=== PATIENT | male | born 1935 | race Caucasian/White ===

== ENCOUNTER → 2016-08-14 | Day surgery (SDC) | payer MEDICARE, BC ==
[~2016-08-14] MED LIST: ASPIRIN; ASPIRIN81 M2 PO; AVANDIA; CELEBREX; CIPRO250 MG PO; CLOPIDOGREL75 MG PO; DILTIAZEM 24HR180 M1 PO; FLOMAX0.4 M1 DOB; GLIPIZIDE5 MG/BOTT1 PO; IMDUR-ER60 M1 DOB; ISORDIL; LIPITOR PO; LIPITOR40 MG PO; LISINOPRIL PO; METFORMIN HCL1000 M2; METFORMIN HCL500 M1 PO; SULAR PO; SULAR20 MG PO; TRAVATAN5 ML OU; TYLOX 5-500 CA1 EACH PO; WELLBUTRIN XL; ZESTRIL40 MG PO
--- NOTE | ~2016-08-14 | OR ---
Unit #: [id number] #: [id number] Patient: ALLY WILLIAM [id number] [facility]. [place], [place] [address] [id number] MR#: [id number] NAME: ALLY WILLIAM ROOM: Date of Procedure: 08/14/2016 Admission Date: 08/14/2016 Surgeon: Mykel Chase M.D. : 1935 Attending Physician: Mykel Chase M.D. Primary Care Physician: Taco Saeed M.D. OPERATIVE REPORT PROCEDURES PERFORMED Left ureteroscopy, laser lithotripsy, basket extraction, and stent replacement. DESCRIPTION OF PROCEDURE After informed consent, the patient was taken to the operating room, placed under general anesthetic, positioned in lithotomy. His penis and perineum were prepped and draped in the usual sterile fashion. Cystoscopy was performed. His existing stent was pulled out to the meatus and a wire was placed inside the stent and the stent was removed. A ureteroscopy was performed. In the ureter, the stone fragments that were encountered were extracted, they were small enough and I used a holmium laser and broke the pieces up into smaller fragments and these two were extracted. A new stent was placed under fluoroscopic and direct guidance. There was good coil in the bladder and the collecting system. The string was left attached. The patient will return to see me as an outpatient for stent removal. He tolerated the procedure well. Dictated by... Aj Lozada/vick TD: 08/30/2016 18:44 JOB #: [id number] OPERATIVE REPORT X Mykel Chase MD X PROCEDURE OPERATIVE NOTE
--- NOTE | ~2016-08-14 | EKG ---
PATIENT: ALLY WILLIAM UNIT #: [id number] Ventricular Rate: 79 BPM Atrial Rate: 79 BPM P-R Interval: 188 ms QRS Duration: 80 ms Q-T Interval: 382 ms QTC Calculation(Bezet): 438 ms P [place]: 65 degrees Calculated R [place]: 54 degrees Calculated T [place]: 64 degrees Diagnosis Line: Normal sinus rhythm Diagnosis Line: Early R Wave Transition Diagnosis Line: Borderline ECG Diagnosis Line: When compared with ECG of 30-APR-2015 13:20, Diagnosis Line: No significant change was found Diagnosis Line: Confirmed by ANTWON BOURGEOIS MD ([id number]) on Diagnosis Line: 08/14/2016 11:01:15 PM INTERPRETING MD: RAFAELA
[2016-08-14 13:29] LABS: BASOPHIL# 0.1 X10e3 (0-0.3); BASOPHIL% 1.2 % (0-2.5); EOSINOPHIL# 0.1 X10e3 (0-0.7); EOSINOPHIL% 1.8 % (0.0-7.0); HEMATOCRIT 31.3 % (38.0-50.0); HEMOGLOBIN 10.3 gm/dL (13.0-16.0); LYMPHOCYTE# 1.1 X10e3 (1.0-3.5); LYMPHOCYTE% 19.2 % (17.0-45.0); MEAN CELL VOLUME 85.1 FL (83-96); MEAN CORPUSCULAR HGB CONC 32.9 g/dL (30-36); MONOCYTE# 0.5 X10e3 (0-1.0); MONOCYTE% 8.1 % (3.0-12.0); NEUTROPHIL# 3.9 X10e3 (1.5-7.1); NEUTROPHIL% 69.7 % (40-75); PLATELET COUNT 222 X10e3 (140-420); RED BLOOD COUNT 3.68 X10e (3.90-5.60); RED CELL DISTRIBUTION WIDTH 15.2 % (11.0-15.5); WHITE BLOOD COUNT 5.6 X10e3 (4.0-10.5)
[2016-08-14 13:31] LABS: DIFF IND NO
[2016-08-14 13:44] LABS: BUN/CREATININE RATIO 18.88; CREATININE SERUM 1.8 mg/dL (0.6-1.4); GLOM FILT RATE Estimated 38.9 mL/min (>60); POTASSIUM 5.1 mmol/L (3.5-5.1)
== END | disposition home or self-care (01) ==
LOC: CSUR 12:37
PROVIDERS: Urology
DX: N20.1 Calculus of ureter (principal); E11.22 Type 2 diabetes mellitus with diabetic chronic kidney disease; I12.9 Hypertensive chronic kidney disease with stage 1 through stage 4 chronic kidney disease, or unspecified chronic kidney disease; N18.9 Chronic kidney disease, unspecified; I25.10 Atherosclerotic heart disease of native coronary artery without angina pectoris; E78.5 Hyperlipidemia, unspecified; N40.0 Benign prostatic hyperplasia without lower urinary tract symptoms; M19.90 Unspecified osteoarthritis, unspecified site; Z86.73 Personal history of transient ischemic attack (TIA), and cerebral infarction without residual deficits; Z87.891 Personal history of nicotine dependence; Z79.82 Long term (current) use of aspirin; Z79.899 Other long term (current) drug therapy; Z98.41 Cataract extraction status, right eye; Z98.42 Cataract extraction status, left eye; Z98.890 Other specified postprocedural states
CPT/HCPCS: 80048; 82947; 85025; 93005; C1758; C2617; J1956; J2405; J3010

== ENCOUNTER → 2016-10-17 | Outpatient (CLI) | payer MEDICARE, BC ==
[2016-10-17 14:35] LABS: HEMATOCRIT 29.5 % (38.0-50.0); HEMOGLOBIN 9.9 gm/dL (13.0-16.0); MEAN CELL VOLUME 87.6 FL (83-96); MEAN CORPUSCULAR HEMOGLOBIN 29.3 PG (28-34); MEAN CORPUSCULAR HGB CONC 33.4 g/dL (30-36); MEAN PLATELET VOLUME 7.5 FL (6.5-11.5); RED BLOOD COUNT 3.37 X10e (3.90-5.60); RED CELL DISTRIBUTION WIDTH 15.5 % (11.0-15.5); WHITE BLOOD COUNT 5.4 X10e3 (4.0-10.5)
[2016-10-17 17:03] LABS: FOLATE (FOLIC ACID) 17.6 ng/mL (>5.8)
== END | disposition home or self-care (01) ==
LOC: SLAB 14:20
PROVIDERS: Internal Medicine
DX: D64.9 Anemia, unspecified (principal)
CPT/HCPCS: 36415; 82607; 82746; 83540; 83550; 85027